=== PATIENT | female | born 1945 | race Caucasian/White ===

== ENCOUNTER 2016-08-11 20:42 | Inpatient (IN) | payer OTHER, MEDICAID ==
[~2016-08-11] VITALS: Ht 160 cm; Wt 83.9 kg
[2016-08-11 20:45] VITALS: BP 128/98; PULSE 100; RESP 24; TEMP 102.4; O2SAT 95
[2016-08-11 22:49] LABS: BASOPHILS % (AUTO) 0.4 % (0.0-2.0); HEMOGLOBIN 7.8 g/dL (12.0-16.0); LYMPHOCYTES # (AUTO) 0.4 K/uL (1.0-5.5); LYMPHOCYTES % (AUTO) 7.9 % (20.5-51.5); MEAN CORPUSCULAR HEMOGLOBIN 32 pg (27-31); MEAN CORPUSCULAR HGB CONC 33 % (32-36); MEAN CORPUSCULAR VOLUME 97 fL (79.0-98.0); MONOCYTES # (AUTO) 0.4 K/uL (0.0-1.0); MONOCYTES % (AUTO) 7.5 % (1.7-9.3); NEUTROPHILS # (AUTO) 4.5 K/uL (1.8-7.7); NEUTROPHILS % (AUTO) 84.2 % (40.0-70.0); PLATELET COUNT (AUTO) 135 K/uL (130-430); RED BLOOD CELL COUNT(AUTO) 2.48 MIL/uL (4.2-6.2); RED CELL DISTRIBUTION WIDTH 16.4 % (9.0-15.0); WHITE BLOOD COUNT (AUTO) 5.3 K/uL (4.8-10.8)
[2016-08-11 23:01] LABS: CALCIUM 8.3 mg/dL (8.4-11.0); CREATININE 3.42 mg/dL (0.55-1.30); POTASSIUM 3.6 mmol/L (3.5-5.1)
[2016-08-11 23:06] LABS: ALBUMIN 2.3 g/dL (3.4-4.8); TOTAL BILIRUBIN 0.4 mg/dL (0.0-1.0)
[2016-08-11] MEDS ORDERED: MEROPENEM 1 GM IVPB PREMIX 50 ML IV ONE (23:30)
[2016-08-11] MEDS ORDERED: VANCOMYCIN HCL 1,000 MG in NS 250 ML IV ONE (23:30)
[2016-08-11] MEDS ORDERED: VANCOMYCIN HCL 1000 MG/VIAL IV ONE (23:39)
[2016-08-12] VITALS (11 sets, daily range): BP systolic 97–148; BP diastolic 45–101; PULSE 71–100; RESP 16–29; TEMP 97.4–98.1; O2SAT 95–99
[2016-08-12] MEDS ORDERED: FOLI-43 PO ×2 (00:12→01:53)
[2016-08-12] MEDS ORDERED: TEMA15CA51 PO (00:12)
[2016-08-12] MEDS ORDERED: WARF4TAB2 PO (00:12)
[2016-08-12] MEDS ORDERED: LYR25 PO (00:12)
[2016-08-12] MEDS ORDERED: METH10TA80 PO (00:12)
[2016-08-12] MEDS ORDERED: MONT10TA25 PO (00:12)
[2016-08-12] MEDS ORDERED: MULT-1189 PO (01:53)
[2016-08-12] MEDS ORDERED: ZIN220 PO (01:53)
[2016-08-12] MEDS ORDERED: FAMO20TA98 PO (01:53)
[2016-08-12] MEDS ORDERED: METO-290 PO (01:53)
[2016-08-12] MEDS ORDERED: INSU100V11 SQ (01:53)
[2016-08-12] MEDS ORDERED: ATOR10TA68 PO (01:53)
[2016-08-12] MEDS ORDERED: HYDR-1189 PO (01:53)
[2016-08-12] MEDS ORDERED: MEGE40TA PO (01:53)
[2016-08-12] MEDS ORDERED: DIPH25CA83 PO (01:53)
[2016-08-12] MEDS ORDERED: ERGO500043 PO (01:53)
[2016-08-12] MEDS ORDERED: ONDA4TAB5 PO (01:53)
[2016-08-12] MEDS ORDERED: CARV12.548 PO (01:53)
[2016-08-12] MEDS ORDERED: CALC667T5 PO (01:53)
[2016-08-12] MEDS ORDERED: MINE25OI3 TP (01:53)
[2016-08-12] MEDS ORDERED: AMIN30LI2 PO (01:53)
[2016-08-12] MEDS ORDERED: DIPH25TA62 (01:53)
[2016-08-12] MEDS ORDERED: DIPH-590 (01:53)
[2016-08-12] MEDS ORDERED: ACET-1010 PO (01:53)
[2016-08-12] MEDS ORDERED: LORA1TAB PO (01:53)
[2016-08-12] MEDS ORDERED: FERR-57 PO (01:53)
[2016-08-12] MEDS ORDERED: ASCO500T20 PO (01:53)
[2016-08-12] MEDS ORDERED: ONDANSETRON 4 MG ODT TAB PO PRN (02:00)
[2016-08-12 02:26] LABS: INR 3.2 (0.8-1.2)
[2016-08-12 02:33] LABS: PROTHROMBIN TIME 35.9 SECS (9.5-12.5)
[2016-08-12 02:51] LABS: ABG TOTAL HEMOGLOBIN 8.9 G/dL (12.0-18.0); BLOOD GAS BASE EXCESS 5.8 mmol/L (-3.0-3.0); BLOOD GAS COHb% 0.5 % (0.5-1.5); BLOOD GAS HHB 3.2 % (0.0-6.0); BLOOD O2Hb% 95.7 % (94.0-97.0)
[2016-08-12] MEDS: ALBUTEROL SULFATE 0.083% 2.5 MG/3 ML VIAL.NEB INH SCH ×6 (03:27→23:57)
[2016-08-12 06:25] LABS: INR 3.4 (0.8-1.2)
[2016-08-12 06:33] LABS: PROTHROMBIN TIME 38.5 SECS (9.5-12.5)
[2016-08-12] MEDS: INSULIN REGULAR, HUMAN 100 UNITS/ML, 10 ML VIAL (novoLIN R) SUBCUT PRN ×3 (06:55→22:51)
[2016-08-12 06:56] LABS: BASOPHILS % (AUTO) 0.8 % (0.0-2.0); EOSINOPHILS % (AUTO) 0.2 % (0.0-4.0); HEMATOCRIT 25.3 % (36-48); HEMOGLOBIN 8.2 g/dL (12.0-16.0); LYMPHOCYTES # (AUTO) 0.5 K/uL (1.0-5.5); LYMPHOCYTES % (AUTO) 12.5 % (20.5-51.5); MEAN CORPUSCULAR HEMOGLOBIN 32 pg (27-31); MEAN CORPUSCULAR HGB CONC 32 % (32-36); MEAN CORPUSCULAR VOLUME 98 fL (79.0-98.0); MONOCYTES # (AUTO) 0.6 K/uL (0.0-1.0); MONOCYTES % (AUTO) 14.4 % (1.7-9.3); NEUTROPHILS # (AUTO) 3.1 K/uL (1.8-7.7); NEUTROPHILS % (AUTO) 72.1 % (40.0-70.0); PLATELET COUNT (AUTO) 118 K/uL (130-430); RED BLOOD CELL COUNT(AUTO) 2.59 MIL/uL (4.2-6.2); RED CELL DISTRIBUTION WIDTH 16.7 % (9.0-15.0); WHITE BLOOD COUNT (AUTO) 4.2 K/uL (4.8-10.8)
[2016-08-12 07:32] LABS: CREATININE 3.68 mg/dL (0.55-1.30); POTASSIUM 3.7 mmol/L (3.5-5.1)
[2016-08-12] MEDS: FAMOTIDINE 20 MG TABLET PO SCH (08:19)
[2016-08-12] MEDS: PREGABALIN 25 MG CAPSULE (LYRICA) PO SCH (08:19)
[2016-08-12] MEDS: FERROUS SULFATE 325 MG TABLET.DR PO SCH ×2 (08:19→21:54)
[2016-08-12] MEDS: ATORVASTATIN 10 MG TABLET PO SCH (08:19)
[2016-08-12] MEDS: MEGESTROL ACETATE 400 MG/10 ML UDC PO SCH ×3 (08:19→21:00)
[2016-08-12] MEDS: ASCORBIC ACID 500 MG TABLET PO SCH (08:20)
[2016-08-12] MEDS: METOCLOPRAMIDE HCL 10 MG TABLET PO SCH ×2 (08:20→21:54)
[2016-08-12] MEDS: CARVEDILOL 12.5 MG TABLET (COREG) PO SCH ×2 (08:21→21:55)
[2016-08-12] MEDS: FOLIC ACID 1 MG TABLET PO SCH (08:22)
[2016-08-12] MEDS: METHIMAZOLE 5 MG TABLET PO SCH ×3 (08:43→21:54)
[2016-08-12] MEDS: CALCIUM ACETATE 667 MG CAP PO SCH ×3 (08:44→17:05)
[2016-08-12] MEDS ORDERED: FOLIC ACID 1 MG TABLET PO SCH (09:00)
[2016-08-12] MEDS ORDERED: WARFARIN SODIUM 4 MG TABLET PO SCH (09:00)
[2016-08-12] MEDS ORDERED: NON-FORMULARY MEDICATION (Amino Acids/Protein Hydrolys (Pro-Stat Liquid) 30 ML) PO SCH (09:00)
[2016-08-12] MEDS: LACTULOSE 20 GM/30 ML UDC PO SCH ×2 (10:15→21:00)
[2016-08-12] MEDS ORDERED: LACTULOSE 20 GM/30 ML UDC PO ONE (11:45)
[2016-08-12] MEDS: MULTIVITS,CA,MINERALS/IRON/FA 1 TABLET PO SCH (11:54)
[2016-08-12] MEDS: MINERAL OIL 30 ML UDC PO SCH (11:54)
[2016-08-12] MEDS: CEFEPIME 1 GM in D5W 50 ML IV SCH (14:27)
[2016-08-12] MEDS: MONTELUKAST 10 MG TABLET PO SCH (17:05)
[2016-08-12] MEDS: HYDROcodone/ACETAMIN 5-325 MG TAB (NORCO/ VICODIN) PO PRN (19:58)
[2016-08-12] MEDS ORDERED: MINERAL OIL 30 ML UDC PO SCH (21:00)
[2016-08-12] MEDS ORDERED: METHIMAZOLE 5 MG TABLET ONE (21:56)
[2016-08-13 00:53] VITALS: BP 132/86; PULSE 72; RESP 18; TEMP 98.2; O2SAT 98
[2016-08-13] MEDS: HYDROcodone/ACETAMIN 5-325 MG TAB (NORCO/ VICODIN) PO PRN ×3 (02:13→17:56)
[2016-08-13 04:41] VITALS: BP 136/82; PULSE 76; RESP 17; TEMP 97.8; O2SAT 97
[2016-08-13 07:12] LABS: INR 3.4 (0.8-1.2)
[2016-08-13 07:28] LABS: BLOOD GAS PH 7.411 (7.350-7.450)
[2016-08-13 07:29] LABS: ABG TOTAL HEMOGLOBIN 8.9 G/dL (12.0-18.0); BLOOD GAS BASE EXCESS 3.2 mmol/L (-3.0-3.0); BLOOD GAS COHb% 0.8 % (0.5-1.5); BLOOD GAS HHB 4.9 % (0.0-6.0)
[2016-08-13 08:07] LABS: PROTHROMBIN TIME 38.6 SECS (9.5-12.5)
[2016-08-13] MEDS: ASCORBIC ACID 500 MG TABLET PO SCH (08:12)
[2016-08-13] MEDS: ATORVASTATIN 10 MG TABLET PO SCH (08:12)
[2016-08-13] MEDS: METOCLOPRAMIDE HCL 10 MG TABLET PO SCH ×2 (08:12→20:39)
[2016-08-13] MEDS: FAMOTIDINE 20 MG TABLET PO SCH (08:13)
[2016-08-13] MEDS: MULTIVITS,CA,MINERALS/IRON/FA 1 TABLET PO SCH (08:13)
[2016-08-13] MEDS: CALCIUM ACETATE 667 MG CAP PO SCH ×3 (08:13→17:56)
[2016-08-13] MEDS: PREGABALIN 25 MG CAPSULE (LYRICA) PO SCH (08:13)
[2016-08-13] MEDS: FERROUS SULFATE 325 MG TABLET.DR PO SCH ×2 (08:13→20:39)
[2016-08-13] MEDS: CARVEDILOL 12.5 MG TABLET (COREG) PO SCH ×2 (08:14→20:41)
[2016-08-13] MEDS: MINERAL OIL 30 ML UDC PO SCH (08:14)
[2016-08-13] MEDS: FOLIC ACID 1 MG TABLET PO SCH (08:14)
[2016-08-13] MEDS: LACTULOSE 20 GM/30 ML UDC PO SCH ×2 (08:14→20:39)
[2016-08-13] MEDS: MEGESTROL ACETATE 400 MG/10 ML UDC PO SCH ×2 (08:15→20:39)
[2016-08-13] MEDS ORDERED: HEPARIN SODIUM,PORCINE 5000 UNITS/ML VIAL IVP ONE ×2 (10:00)
[2016-08-13] MEDS: METHIMAZOLE 5 MG TABLET PO SCH ×3 (11:02→20:40)
[2016-08-13] MEDS: ALBUTEROL SULFATE 0.083% 2.5 MG/3 ML VIAL.NEB INH SCH ×3 (11:28→19:49)
[2016-08-13] MEDS: CEFEPIME 1 GM in D5W 50 ML IV SCH (12:08)
[2016-08-13 13:09] VITALS: BP 134/72; PULSE 83; RESP 20; TEMP 97.3; O2SAT 95
[2016-08-13 16:14] VITALS: Ht 160 cm; Wt 83.9 kg
[2016-08-13] MEDS ORDERED: ALBUTEROL SULFATE 0.083% 2.5 MG/3 ML VIAL.NEB INH PRN (16:15)
[2016-08-13 17:09] VITALS: BP 134/65; PULSE 78; RESP 20; TEMP 97.8; O2SAT 96
[2016-08-13] MEDS: INSULIN REGULAR, HUMAN 100 UNITS/ML, 10 ML VIAL (novoLIN R) SUBCUT PRN ×2 (17:52→20:37)
[2016-08-13] MEDS: MONTELUKAST 10 MG TABLET PO SCH (17:56)
[2016-08-13 20:00] VITALS: BP 119/60; PULSE 77; RESP 18; TEMP 97.3; O2SAT 97
[2016-08-13 23:37] VITALS: BP 121/64; PULSE 72; RESP 20; TEMP 97.2; O2SAT 98
[2016-08-14] MEDS: ALBUTEROL SULFATE 0.083% 2.5 MG/3 ML VIAL.NEB INH SCH ×4 (01:00→20:31)
[2016-08-14 04:05] VITALS: BP 132/65; PULSE 67; RESP 18; TEMP 97.2; O2SAT 97
[2016-08-14 06:29] LABS: CREATININE 4.38 mg/dL (0.55-1.30); POTASSIUM 3.8 mmol/L (3.5-5.1)
[2016-08-14 06:41] LABS: BASOPHILS % (AUTO) 0.4 % (0.0-2.0); EOSINOPHILS # (AUTO) 0.4 K/uL (0.0-0.4); EOSINOPHILS % (AUTO) 7.3 % (0.0-4.0); HEMATOCRIT 27.6 % (36-48); HEMOGLOBIN 8.8 g/dL (12.0-16.0); LYMPHOCYTES # (AUTO) 1.2 K/uL (1.0-5.5); MEAN CORPUSCULAR HEMOGLOBIN 31 pg (27-31); MEAN CORPUSCULAR HGB CONC 32 % (32-36); MEAN CORPUSCULAR VOLUME 97 fL (79.0-98.0); MONOCYTES # (AUTO) 0.5 K/uL (0.0-1.0); MONOCYTES % (AUTO) 9.7 % (1.7-9.3); NEUTROPHILS # (AUTO) 2.9 K/uL (1.8-7.7); NEUTROPHILS % (AUTO) 59.6 % (40.0-70.0); PLATELET COUNT (AUTO) 135 K/uL (130-430); RED BLOOD CELL COUNT(AUTO) 2.84 MIL/uL (4.2-6.2); RED CELL DISTRIBUTION WIDTH 16.6 % (9.0-15.0)
[2016-08-14 06:44] LABS: INR 2.1 (0.8-1.2); PROTHROMBIN TIME 23.1 SECS (9.5-12.5)
[2016-08-14 08:00] VITALS: BP 138/69; PULSE 73; RESP 16; TEMP 97.1; O2SAT 96
[2016-08-14 08:06] LABS: HEPATITIS A AB, IgM Negative (Negative); HEPATITIS B CORE AB, IgM Negative (Negative); HEPATITIS B SURFACE AG Negative (Negative)
[2016-08-14] MEDS: MEGESTROL ACETATE 400 MG/10 ML UDC PO SCH ×3 (08:35→21:00)
[2016-08-14] MEDS: FERROUS SULFATE 325 MG TABLET.DR PO SCH ×2 (08:35→21:21)
[2016-08-14] MEDS: PREGABALIN 25 MG CAPSULE (LYRICA) PO SCH (08:35)
[2016-08-14] MEDS: ATORVASTATIN 10 MG TABLET PO SCH (08:35)
[2016-08-14] MEDS: CALCIUM ACETATE 667 MG CAP PO SCH ×3 (08:35→17:09)
[2016-08-14] MEDS: METOCLOPRAMIDE HCL 10 MG TABLET PO SCH ×2 (08:35→21:19)
[2016-08-14] MEDS: HYDROcodone/ACETAMIN 5-325 MG TAB (NORCO/ VICODIN) PO PRN ×3 (08:36→21:21)
[2016-08-14] MEDS: MULTIVITS,CA,MINERALS/IRON/FA 1 TABLET PO SCH (08:37)
[2016-08-14] MEDS: FAMOTIDINE 20 MG TABLET PO SCH (08:37)
[2016-08-14] MEDS: FOLIC ACID 1 MG TABLET PO SCH (08:37)
[2016-08-14] MEDS: LACTULOSE 20 GM/30 ML UDC PO SCH (08:38)
[2016-08-14] MEDS: MINERAL OIL 30 ML UDC PO SCH (08:38)
[2016-08-14] MEDS ORDERED: NON-FORMULARY MEDICATION (Ergocalciferol (Vitamin D2) (Vitamin D2) 50,000 UNIT) PO SCH (09:00)
[2016-08-14] MEDS: ASCORBIC ACID 500 MG TABLET PO SCH (09:04)
[2016-08-14] MEDS: METHIMAZOLE 5 MG TABLET PO SCH ×3 (09:05→21:30)
[2016-08-14] MEDS ORDERED: methylPREDNISolone SOD SUCC/PF 62.5 MG/ML VIAL IVP ONE (10:00)
[2016-08-14] MEDS: CEFEPIME 1 GM in D5W 50 ML IV SCH (11:45)
[2016-08-14] MEDS: IPRATROPIUM BROM 0.5 MG/2.5 ML VIAL.NEB (ATROVENT) INH SCH ×2 (12:46→20:31)
[2016-08-14 12:55] VITALS: BP 130/70; PULSE 76; RESP 17; TEMP 98; O2SAT 98
[2016-08-14] MEDS: CARVEDILOL 12.5 MG TABLET (COREG) PO SCH ×2 (13:29→21:20)
[2016-08-14] MEDS ORDERED: MENTHOL/ZINC OXIDE 113 GM OINT. TP PRN (14:15)
[2016-08-14] MEDS: ALPRAZolam 0.25 MG TABLET PO PRN ×2 (14:50→21:20)
[2016-08-14 16:01] VITALS: BP 138/72; PULSE 80; RESP 18; TEMP 97.8; O2SAT 98
[2016-08-14] MEDS: INSULIN REGULAR, HUMAN 100 UNITS/ML, 10 ML VIAL (novoLIN R) SUBCUT PRN ×2 (16:48→21:29)
[2016-08-14] MEDS: MONTELUKAST 10 MG TABLET PO SCH (17:09)
[2016-08-14 20:00] VITALS: BP 148/87; PULSE 75; RESP 20; TEMP 97.8; O2SAT 94
[2016-08-15] VITALS (7 sets, daily range): BP systolic 122–138; BP diastolic 60–73; PULSE 68–91; RESP 16–21; TEMP 96.8–97.4; O2SAT 95–98
[2016-08-15] MEDS: ALBUTEROL SULFATE 0.083% 2.5 MG/3 ML VIAL.NEB INH SCH ×4 (01:00→19:30)
[2016-08-15] MEDS: IPRATROPIUM BROM 0.5 MG/2.5 ML VIAL.NEB (ATROVENT) INH SCH ×4 (01:00→19:30)
[2016-08-15] MEDS: INSULIN REGULAR, HUMAN 100 UNITS/ML, 10 ML VIAL (novoLIN R) SUBCUT PRN ×3 (06:39→21:18)
[2016-08-15 07:28] LABS: INR 1.6 (0.8-1.2); PROTHROMBIN TIME 17.3 SECS (9.5-12.5)
[2016-08-15] MEDS: CALCIUM ACETATE 667 MG CAP PO SCH ×3 (08:54→18:37)
[2016-08-15] MEDS: FOLIC ACID 1 MG TABLET PO SCH (08:55)
[2016-08-15] MEDS: FERROUS SULFATE 325 MG TABLET.DR PO SCH ×2 (08:55→21:07)
[2016-08-15] MEDS: PREGABALIN 25 MG CAPSULE (LYRICA) PO SCH (08:55)
[2016-08-15] MEDS: ATORVASTATIN 10 MG TABLET PO SCH (08:55)
[2016-08-15] MEDS: FAMOTIDINE 20 MG TABLET PO SCH (08:56)
[2016-08-15] MEDS: METOCLOPRAMIDE HCL 10 MG TABLET PO SCH ×2 (08:56→21:08)
[2016-08-15] MEDS: ASCORBIC ACID 500 MG TABLET PO SCH (08:57)
[2016-08-15] MEDS: MULTIVITS,CA,MINERALS/IRON/FA 1 TABLET PO SCH (08:57)
[2016-08-15] MEDS: METHIMAZOLE 5 MG TABLET PO SCH ×3 (08:57→21:09)
[2016-08-15] MEDS: ALPRAZolam 0.25 MG TABLET PO PRN ×3 (08:58→21:24)
[2016-08-15] MEDS: MEGESTROL ACETATE 400 MG/10 ML UDC PO SCH ×2 (08:59→21:08)
[2016-08-15] MEDS: HYDROcodone/ACETAMIN 5-325 MG TAB (NORCO/ VICODIN) PO PRN ×3 (08:59→21:26)
[2016-08-15] MEDS: MINERAL OIL 30 ML UDC PO SCH (09:00)
[2016-08-15] MEDS: CARVEDILOL 12.5 MG TABLET (COREG) PO SCH ×2 (09:00→21:07)
[2016-08-15] MEDS: CEFEPIME 1 GM in D5W 50 ML IV SCH (11:53)
[2016-08-15] MEDS ORDERED: WARFARIN SODIUM 3 MG TABLET PO ONE (18:00)
[2016-08-15] MEDS ORDERED: WARFARIN SODIUM 4 MG TABLET PO ONE (18:00)
[2016-08-15] MEDS: MONTELUKAST 10 MG TABLET PO SCH (18:37)
[2016-08-15] MEDS: DOXYCYCLINE HYCLATE 100 MG CAPSULE PO SCH (21:09)
[2016-08-16 00:34] VITALS: BP 123/65; PULSE 73; RESP 18; TEMP 98.5; O2SAT 97
[2016-08-16 03:39] VITALS: BP 125/63; PULSE 71; RESP 18; TEMP 98.6; O2SAT 97
[2016-08-16] MEDS: HYDROcodone/ACETAMIN 5-325 MG TAB (NORCO/ VICODIN) PO PRN (05:44)
[2016-08-16] MEDS: ALPRAZolam 0.25 MG TABLET PO PRN (05:45)
[2016-08-16 07:16] LABS: INR 1.6 (0.8-1.2); PROTHROMBIN TIME 17.2 SECS (9.5-12.5)
[2016-08-16 07:54] VITALS: BP 123/68; PULSE 68; RESP 20; TEMP 97.6; O2SAT 100
[2016-08-16] MEDS: METHIMAZOLE 5 MG TABLET PO SCH (08:21)
[2016-08-16] MEDS: ASCORBIC ACID 500 MG TABLET PO SCH (08:23)
[2016-08-16] MEDS: MEGESTROL ACETATE 400 MG/10 ML UDC PO SCH (08:23)
[2016-08-16] MEDS: FAMOTIDINE 20 MG TABLET PO SCH (08:23)
[2016-08-16] MEDS: PREGABALIN 25 MG CAPSULE (LYRICA) PO SCH (08:23)
[2016-08-16] MEDS: FERROUS SULFATE 325 MG TABLET.DR PO SCH (08:23)
[2016-08-16] MEDS: CALCIUM ACETATE 667 MG CAP PO SCH (08:23)
[2016-08-16] MEDS: MULTIVITS,CA,MINERALS/IRON/FA 1 TABLET PO SCH (08:23)
[2016-08-16] MEDS: FOLIC ACID 1 MG TABLET PO SCH (08:23)
[2016-08-16] MEDS: ATORVASTATIN 10 MG TABLET PO SCH (08:23)
[2016-08-16] MEDS: METOCLOPRAMIDE HCL 10 MG TABLET PO SCH (08:23)
[2016-08-16] MEDS: CARVEDILOL 12.5 MG TABLET (COREG) PO SCH (08:24)
[2016-08-16] MEDS: DOXYCYCLINE HYCLATE 100 MG CAPSULE PO SCH (08:24)
[2016-08-16] MEDS: MINERAL OIL 30 ML UDC PO SCH (08:24)
[2016-08-16] MEDS: IPRATROPIUM BROM 0.5 MG/2.5 ML VIAL.NEB (ATROVENT) INH SCH ×2 (08:37)
[2016-08-16] MEDS: ALBUTEROL SULFATE 0.083% 2.5 MG/3 ML VIAL.NEB INH SCH ×2 (08:37)
[2016-08-16 10:08] VITALS: BP 106/65; PULSE 72; RESP 18; TEMP 97.6; O2SAT 98
[2016-08-16 11:00] VITALS: BP 100/65; PULSE 72; RESP 18; TEMP 98.7; O2SAT 99
[2016-08-16] MEDS ORDERED: WARFARIN SODIUM 3 MG TABLET PO SCH (18:00)
== END 2016-08-16 11:15 | DRG 177 ==
LOC: SED 20:42 → SIC 08-12 01:27 → STU 08-12 10:56 → SMU 08-14 15:18
PROVIDERS: ADMIT Internal Medicine; ATTEND Internal Medicine
PROC: 5A1D60Z (ICD-10-PCS; principal; 2016-08-13)
DX: J69.0 Pneumonitis due to inhalation of food and vomit (principal); E43 Unspecified severe protein-calorie malnutrition; N18.6 End stage renal disease; G93.41 Metabolic encephalopathy; N25.81 Secondary hyperparathyroidism of renal origin; I13.2 Hypertensive heart and chronic kidney disease with heart failure and with stage 5 chronic kidney disease, or end stage renal disease; I50.9 Heart failure, unspecified; D63.1 Anemia in chronic kidney disease; E05.90 Thyrotoxicosis, unspecified without thyrotoxic crisis or storm; E11.22 Type 2 diabetes mellitus with diabetic chronic kidney disease; E66.01 Morbid (severe) obesity due to excess calories; G47.33 Obstructive sleep apnea (adult) (pediatric); E03.9 Hypothyroidism, unspecified; I87.2 Venous insufficiency (chronic) (peripheral); K76.9 Liver disease, unspecified; J44.9 Chronic obstructive pulmonary disease, unspecified; I89.0 Lymphedema, not elsewhere classified; G89.4 Chronic pain syndrome; Z79.01 Long term (current) use of anticoagulants; Z86.711 Personal history of pulmonary embolism; Z99.2 Dependence on renal dialysis; Z79.4 Long term (current) use of insulin; Z88.6 Allergy status to analgesic agent; Z88.7 Allergy status to serum and vaccine; Z22.322 Carrier or suspected carrier of Methicillin resistant Staphylococcus aureus; Z68.32 Body mass index [BMI] 32.0-32.9, adult; Z79.899 Other long term (current) drug therapy
CPT/HCPCS: 36415; 36600; 70450-TC; 71010; 80048; 80053; 80074; 82140-TC; 82803-TC; 82962; 83605; 84484; 85025; 85610-TC; 87040-TC; 87070-TC; 87081; 87205-TC; 90935; 90937; 93005; 94640; 94760; 96365; 96367; 96368; 97530-GP; 99291; J0692; J1644; J1815; J2185; J2930; J3370; J7030; J7050; J7060; J8597; Q0162

== ENCOUNTER 2020-11-22 14:21 | Inpatient (IN) | payer OTHER, MEDICAID, SELFPAY ==
[~2020-11-22] VITALS: Ht 154.9 cm; Wt 93.6 kg
[~2020-11-22 14:21] MED LIST: ACET-2634 PO; AMIN30LI2 PO; ASCO500T20 PO; ATOR10TA68 PO; CALC667T6 PO; CARV12.548 PO; DIPH-590; DIPH25CA83 PO; DIPH25TA62; ERGO500020 PO; FAMO-132 PO; FERR-57 PO; FOLI-43 PO; HYDR-3919 PO; INSU100V11 SQ; LORA1TAB PO; LYR25 PO; MEGE40TA PO; METH10TA80 PO; METO-290 PO; MINE25OI3 TP; MONT10TA33 PO; MULT-1189 PO; ONDA4TAB5 PO; TEMA15CA5 PO; WARF4TAB2 PO; ZIN220 PO
[2020-11-22 14:30] VITALS: BP_SYST 108
--- NOTE | 2020-11-22 14:30 | NUR ---
Patient to ER bed 8 to gown for evaluation. Side rails up. Report given to BINDU WU.
--- NOTE | 2020-11-22 14:50 | NUR ---
Pt. bib ACLS with c/o SOB during dialysis was on 15L/min with non rebreather and O2 sat 100% pt denies any SOB at this time.
--- NOTE | 2020-11-22 15:00 | NUR ---
ER at bedside examining patient.
--- NOTE | 2020-11-22 15:35 | NUR ---
Lowered O2 to 5L/min sat high 90s to 100%, no SOB, O2 removed for ABG pt decreased to mid 80's on RA, o2 reapplied at 5L/min. and sat 100%.
--- NOTE | 2020-11-22 15:40 | NUR ---
Lab at bedside for blood draw
--- NOTE | 2020-11-22 15:48 | NUR ---
chest xray done at bedside, covid swab taken, pt. placed on NC 3L/min O2
[2020-11-22 16:04] LABS: HEMOGLOBIN 9.5 g/dL (12.0-16.0); PLATELET COUNT (AUTO) 89 K/uL (130-430); RED BLOOD CELL COUNT(AUTO) 2.84 MIL/uL (4.2-6.2)
[2020-11-22 16:18] LABS: CALCIUM 8.8 mg/dL (8.4-11.0); CHLORIDE 99 mmol/L (98-107); CREATININE 1.88 mg/dL (0.55-1.30); GLUCOSE 151 mg/dL (70-99); POTASSIUM 3.8 mmol/L (3.5-5.1); SODIUM SERUM 138 mmol/L (136-145); UREA NITROGEN, BLOOD 17 mg/dL (8-21)
[2020-11-22 16:23] LABS: BASOPHILS % (AUTO) 0.8 % (0.0-2.0); EOSINOPHILS # (AUTO) 0.3 K/uL (0.0-0.4); EOSINOPHILS % (AUTO) 5.2 % (0.0-4.0); HEMATOCRIT 29.1 % (36-48); LYMPHOCYTES # (AUTO) 0.5 K/uL (1.0-5.5); LYMPHOCYTES % (AUTO) 8.4 % (20.5-51.5); MEAN CORPUSCULAR HEMOGLOBIN 33 pg (27-31); MEAN CORPUSCULAR HGB CONC 32 % (32-36); MEAN CORPUSCULAR VOLUME 103 fL (79.0-98.0); MONOCYTES # (AUTO) 0.5 K/uL (0.0-1.0); MONOCYTES % (AUTO) 7.5 % (1.7-9.3); NEUTROPHILS # (AUTO) 4.8 K/uL (1.8-7.7); NEUTROPHILS % (AUTO) 78.1 % (40.0-70.0); RED CELL DISTRIBUTION WIDTH 14.8 % (9.0-15.0); WHITE BLOOD COUNT (AUTO) 6.1 K/uL (4.8-10.8)
[2020-11-22 16:24] LABS: ALANINE AMINOTRANSFERASE 15 U/L (12-78); ALBUMIN 3.3 g/dL (3.4-4.8); ANION GAP < 3 (5-15); ASPARTATE AMINOTRANSFERASE 12 U/L (10-37); TOTAL BILIRUBIN 0.4 mg/dL (0.0-1.0)
[2020-11-22 16:38] LABS: INR 1.1 (0.8-1.2); PROTHROMBIN TIME 11.1 SECS (9.5-12.5)
[2020-11-22] MEDS ORDERED: AZITHROMYCIN 500 MG in NS 250 ML IV ONE (17:15)
[2020-11-22] MEDS ORDERED: cefTRIAXone 1 GM IVPB PREMIX 50 ML IV ONE (17:15)
[2020-11-22] MEDS ORDERED: AZITHROMYCIN 500 MG/VIAL (ZITHROMAX) IV ONE (18:09)
[2020-11-22] MEDS ORDERED: ONDANSETRON 4 MG ODT TAB PO PRN (19:15)
[2020-11-22] MEDS ORDERED: DIPHENHYDRAMINE HCL 25 MG CAPSULE PO PRN (19:15)
[2020-11-22] MEDS ORDERED: ACETAMINOPHEN 500 MG TABLET PO PRN (19:15)
[2020-11-22] MEDS ORDERED: ONDANSETRON HCL 4 MG/2 ML VIAL IVP PRN (19:15)
[2020-11-22] MEDS ORDERED: NALOXONE HCL 0.4 MG/ML AMP (NARCAN) IVP PRN (19:15)
--- NOTE | 2020-11-22 19:25 | NUR ---
assumed care of pt from toan sagastume
[2020-11-22] MEDS ORDERED: NS 250 ML IV ONE (19:30)
[2020-11-22] MEDS ORDERED: NACL 0.9% 1,000 ML IV SCH (20:00)
[2020-11-22] MEDS: FERROUS SULFATE 325 MG TABLET.DR PO SCH (21:00)
[2020-11-22] MEDS: METOCLOPRAMIDE HCL 10 MG TABLET PO SCH (21:00)
[2020-11-22] MEDS: CARVEDILOL 12.5 MG TABLET (COREG) PO SCH (21:00)
[2020-11-22] MEDS: LORazepam 2 MG/ML VIAL IVP PRN (21:11)
--- NOTE | 2020-11-22 21:15 | NUR ---
pt pulled iv tubing and caused her to bleed on the floor. very disoriebnted and acting inapproproatly. pt given 1mg ativan for comfort.
--- NOTE | 2020-11-22 22:12 | NUR ---
pt is calm, relaxed and asleep. pt is unable to take meds.
[2020-11-22] MEDS: NORMAL SALINE 5 ML DISP.SYRIN IVF SCH (22:23)
--- NOTE | 2020-11-23 | NUR ---
PATIENT IS RESTING IN BED LESS AGITATED WILL CONTINUE TO DO HOURLY ROUNDING. BED LOW AND CALL LIGHT IN REACH.
--- NOTE | 2020-11-23 | NUR ---
PATIENT IS RESTING IN BED AWAKE LESS AGITATED. BED LOW AND CALL LIGHT IN REACH. WILL CONTINUE HOURLY ROUNDING.
--- NOTE | 2020-11-23 00:30 | NUR ---
PT IS AWAKE AND MORE COOPERATIVE AT THIS TIME. HAS NO COMPLAINTS.
--- NOTE | 2020-11-23 03:59 | NUR ---
PT IS RESTING IN BED AND TRYING TO SLEEP. NO COMPLAINTS AT THIS TIME
--- NOTE | 2020-11-23 05:10 | NUR ---
Transfer to 112a via ACLS protocol. Licensed nurse present. IV present no signs or symptoms of infiltration.
[2020-11-23 05:20] VITALS: BP_SYST 126
--- NOTE | 2020-11-23 05:20 | NUR ---
ADMIT NOTE PATIENT TRANSFERRED FROM ER TO TELE FOR OBSERVATION. PATIENT IS CONFUSED UNABLE TO ASSESS ORIENTATION. IV LINE PATENT AND INTACT. BED IS LOW AND CALL LIGHT INTACT. PATIENT DIAPER CHANGED LINEN CHANGED.
[2020-11-23] MEDS: NORMAL SALINE 5 ML DISP.SYRIN IVF SCH ×3 (06:00→22:10)
[2020-11-23] MEDS ORDERED: GLUCOSE (DEXTROSE) ORAL GEL -Adults PO PRN (07:00)
[2020-11-23] MEDS ORDERED: DEXTROSE 50%-WATER 50 ML DISP.SYRIN IVP PRN (07:00)
[2020-11-23] MEDS ORDERED: D5W 1,000 ML IV PRN (07:00)
--- NOTE | 2020-11-23 07:00 | NUR ---
RN OPENING NOTE REPORT WAS ENDORSED BY NIGHT NURSE. PATIENT IS VERY LETHARGIC PATIENT OPENS HER EYES TO NAME, BUT WILL FALL RIGHT BACK TO SLEEP. PATIENT HAS ALL SAFETY PRECAUTIONS IN PLACE.PATIENT IS CLOSE TO NURSES STATION. NO OTHER NEEDS AT THIS TIME.
[2020-11-23 07:36] LABS: BASOPHILS % (AUTO) 0.9 % (0.0-2.0); EOSINOPHILS # (AUTO) 0.3 K/uL (0.0-0.4); EOSINOPHILS % (AUTO) 6.6 % (0.0-4.0); HEMATOCRIT 29.4 % (36-48); HEMOGLOBIN 9.5 g/dL (12.0-16.0); LYMPHOCYTES # (AUTO) 0.6 K/uL (1.0-5.5); LYMPHOCYTES % (AUTO) 12.3 % (20.5-51.5); MEAN CORPUSCULAR HEMOGLOBIN 33 pg (27-31); MEAN CORPUSCULAR HGB CONC 32 % (32-36); MEAN CORPUSCULAR VOLUME 102 fL (79.0-98.0); MONOCYTES # (AUTO) 0.5 K/uL (0.0-1.0); MONOCYTES % (AUTO) 9.9 % (1.7-9.3); NEUTROPHILS # (AUTO) 3.3 K/uL (1.8-7.7); NEUTROPHILS % (AUTO) 70.3 % (40.0-70.0); PLATELET COUNT (AUTO) 83 K/uL (130-430); RED BLOOD CELL COUNT(AUTO) 2.88 MIL/uL (4.2-6.2); RED CELL DISTRIBUTION WIDTH 14.7 % (9.0-15.0); WHITE BLOOD COUNT (AUTO) 4.8 K/uL (4.8-10.8)
[2020-11-23 08:00] VITALS: BP_SYST 148
[2020-11-23 08:00] LABS: ANION GAP 4 (5-15); CALCIUM 8.5 mg/dL (8.4-11.0); CHLORIDE 102 mmol/L (98-107); CREATININE 2.56 mg/dL (0.55-1.30); GLUCOSE 108 mg/dL (70-99); PHOSPHORUS 2.5 mg/dL (2.7-4.5); POTASSIUM 3.8 mmol/L (3.5-5.1); SODIUM SERUM 139 mmol/L (136-145); UREA NITROGEN, BLOOD 28 mg/dL (8-21)
[2020-11-23] MEDS: ASCORBIC ACID 500 MG TABLET PO SCH (08:40)
[2020-11-23] MEDS: FERROUS SULFATE 325 MG TABLET.DR PO SCH ×2 (08:40→21:41)
[2020-11-23] MEDS: PREGABALIN 25 MG CAPSULE (LYRICA) PO SCH (08:41)
[2020-11-23] MEDS: MULTIVITS,CA,MINERALS/IRON/FA 1 TABLET PO SCH (08:41)
[2020-11-23] MEDS: METOCLOPRAMIDE HCL 10 MG TABLET PO SCH ×2 (08:41→21:41)
[2020-11-23] MEDS: ATORVASTATIN 10 MG TABLET PO SCH (08:42)
[2020-11-23] MEDS: CARVEDILOL 12.5 MG TABLET (COREG) PO SCH ×2 (08:42→21:44)
--- NOTE | 2020-11-23 08:51 | NUR ---
MEDICATION PATIENTS SCHEDULED MEDICATION GIVEN PER ORDER. PATIENT IS AWAKE BUT STILL DROWSY. PATIENT STATES WANT TO TRY AND EAT BREAKFAST PROVIDED HER WITH TRAY , OPEN AND CUT UP FOOD FOR HER. PATIENT IS ABLE TO FEED HERSELF AND DRINK HER COFFEE. PATIENT TOLERATED MEDICATION WELL. PATIENT EDUCATED STEEL PLACER LIGHT FOR ASSISTANCE. CALL LIGHT IS WITH HER. PATIENT HAS ALL SAFETY PRECAUTIONS IN PLACE. NO OTHER NEEDS AT THIS TIME.
[2020-11-23] MEDS ORDERED: NON-FORMULARY MEDICATION (Amino Acids/Protein Hydrolys (Pro-Stat Liquid) 30 ML) PO SCH (09:00)
--- NOTE | 2020-11-23 10:48 | NUR ---
RN ROUNDING PATIENT APPEARS TO BE RESTING WITH BOTH EYES CLOSED NO SIGNS OF ANY DISTRESS, BREATHING IS EQUAL AND NON LABORED. PATIENT IS ON TELEMONITOR. PATIENT HAS ALL SAFETY PRECAUTIONS IN PLACE. PATIENT IS CLOSE TO NURSES STATION.
--- NOTE | 2020-11-23 11:51 | NUR ---
ACCU CHECK PATIENTS ACCU CHECK, NO COVERAGE WAS NEEDED. PATIENT IS STILL VERY LETHARGIC BUT OPENS EYES TO NAME. PATIENT SHOWS NO SIGNS OF ANY DISTRESS, BREATHING IS EQUAL AND NON LABORED. NO OTHER NEEDS AT THIS TIME.
[2020-11-23 12:43] VITALS: BP_SYST 138
[2020-11-23] MEDS: HYDROcodone/ACETAMIN 5-325 MG TAB (NORCO/ VICODIN) PO PRN (14:57)
[2020-11-23] MEDS ORDERED: AZITHROMYCIN 500 MG in NS 250 ML IV SCH (15:00)
[2020-11-23] MEDS ORDERED: cefTRIAXone 1 GM in D5W 50 ML IV SCH (15:00)
--- NOTE | 2020-11-23 15:08 | NUR ---
PAIN MEDICATION/ SCHEDULED MEDICATION/ DIALYSIS PATIENT IS AWAKE AND ALERT SITTING UP IN BED STARTING DIALYSIS, PATIENT COMPLAINS OF PAIN MEDICATED PER ORDER. PATIENTS SCHEDULED MEDICATION ALSO GIVEN PER ORDER. NO OTHER NEEDS AT THIS TIME. ALL SAFETY PRECAUTIONS IN PLACE. EDUCATED CORRECTIONS SERGEANT LIGHT, CALL LIGHT IS WITH HER. Addendum: 11/23/20 at 1529 by Angela Moralez RN unable to give iv antibiotics due to hemodialysis
--- NOTE | 2020-11-23 15:49 | NUR ---
spoke with Dr. brice to confirm orders on home medications. Addendum: 11/23/20 at 1555 by Angela Moralez RN HIGH ALERT NOTE: Called back identified within the medical roster to verify physician authenticity. order for heparin for hemodialysis
[2020-11-23] MEDS ORDERED: HEPARIN SODIUM,PORCINE 5,000 UNITS/ML VIAL SUBCUT PRN (16:00)
[2020-11-23 16:27] VITALS: BP_SYST 126
[2020-11-23] MEDS: INSULIN REGULAR, HUMAN 100 UNITS/ML, 10 ML VIAL (humuLIN R) SUBCUT PRN (17:50)
[2020-11-23] MEDS ORDERED: WARFARIN SODIUM 3 MG TABLET PO SCH (18:00)
--- NOTE | 2020-11-23 18:08 | NUR ---
CLOSING NOTE PATIENT IS DONE WITH HEMODIALYSIS 3 L OUT. PATIENTS SCHEDULED. MEDICATION GIVEN PER ORDER. PATIENT HAS ALL SAFETY PRECAUTIONS IN PLACE. Addendum: 11/23/20 at 1822 by Angela Moralez RN HIGH ALERT NOTE: Called Dr. yuniel orellana identified within the medical roster to verify physician authenticity. ok to give a one time dose for pain. patient is currently eating dinner. call light is with her educated to use for assistance. patient is close to nurses station. Addendum: 11/23/20 at 1917 by Angela Moralez RN PAIN MEDICATION GIVEN, SCHEDULED MEDICATION GIVEN PER ORDER.
[2020-11-23] MEDS ORDERED: IPRATROPIUM/ALBUTEROL SULFATE 3 ML AMPUL.NEB (DUONEB) INH PRN (18:15)
[2020-11-23] MEDS ORDERED: HYDROcodone/ACETAMIN 5-325 MG TAB (NORCO/ VICODIN) PO ONE (18:30)
[2020-11-23] MEDS ORDERED: FAMOTIDINE 20 MG TABLET PO ONE (19:15)
--- NOTE | 2020-11-23 19:30 | NUR ---
OPENING NOTE PATIENT IS AWAKE ORIENTED X1 TO NAME. PATIENTS IV IN RH IS PATENT AND PORT-A CATH IN LEST UPPER CHEST IS PATENT INTACT. BREATHING OXYGEN VIA N/C AT 3 LPM NO SIGNS OF RESPIRATORY DISTRESS OF PAIN. BED IS LOW AND CALL LIGHT IN REACH.
[2020-11-23] MEDS: LORazepam 2 MG/ML VIAL IVP PRN (20:43)
--- NOTE | 2020-11-23 20:43 | NUR ---
PATIENT IS VERY AGITATED/ HAS ANXIETY WILL ADMINISTER PRN DOSE OF ATIVAN ORDERED. WILL CONTINUE TO MONITOR ANGELIA LOW AND CALL LIGHT IN REACH.
[2020-11-23] MEDS: INSULIN GLARGINE 100 UNITS/ML 10 ML VIAL SUBCUT SCH (22:01)
[2020-11-23] MEDS: cefTRIAXone 1 GM in D5W 50 ML IV SCH (22:09)
[2020-11-23] MEDS: AZITHROMYCIN 500 MG in NS 250 ML IV SCH (22:10)
--- NOTE | 2020-11-24 | NUR ---
PATIENT IS LESS AGITATED WILL CONTINUE TO MONITOR. BED LOW AND CALL LIGHT IN REACH.
[2020-11-24 00:20] VITALS: BP_SYST 126
[2020-11-24 03:11] VITALS: BP_SYST 98
--- NOTE | 2020-11-24 04:00 | NUR ---
PATIENT IS AWAKE CONFUSED AND COOPERATIVE AT THIS TIME. BED IS LOW AND CALL LIGHT IN REACH.
[2020-11-24] MEDS: NORMAL SALINE 5 ML DISP.SYRIN IVF SCH ×3 (05:59→22:18)
[2020-11-24 06:57] LABS: BASOPHILS # (AUTO) 0.1 K/uL (0.0-0.2); BASOPHILS % (AUTO) 1.2 % (0.0-2.0); EOSINOPHILS # (AUTO) 0.3 K/uL (0.0-0.4); EOSINOPHILS % (AUTO) 5.9 % (0.0-4.0); HEMATOCRIT 30.1 % (36-48); HEMOGLOBIN 9.8 g/dL (12.0-16.0); LYMPHOCYTES # (AUTO) 0.6 K/uL (1.0-5.5); LYMPHOCYTES % (AUTO) 10.9 % (20.5-51.5); MEAN CORPUSCULAR HEMOGLOBIN 33 pg (27-31); MEAN CORPUSCULAR HGB CONC 33 % (32-36); MEAN CORPUSCULAR VOLUME 101 fL (79.0-98.0); MONOCYTES # (AUTO) 0.4 K/uL (0.0-1.0); MONOCYTES % (AUTO) 6.7 % (1.7-9.3); NEUTROPHILS % (AUTO) 75.3 % (40.0-70.0); PLATELET COUNT (AUTO) 86 K/uL (130-430); RED BLOOD CELL COUNT(AUTO) 2.97 MIL/uL (4.2-6.2); RED CELL DISTRIBUTION WIDTH 14.8 % (9.0-15.0); WHITE BLOOD COUNT (AUTO) 5.3 K/uL (4.8-10.8)
--- NOTE | 2020-11-24 07:03 | NUR ---
CLOSING NOTE PATIENT IS AWAKE ALERT X1 TO NAME. IV ACCESS PATENT INTACT IN RH AND PORT-A-CATH IN ANAIS PATENT INTACT. PATIENT INCONTINENT BEDBOUND. BED IS IN LOW POSITION AND CALL LIGHT IN REACH. WILL ENDORSE TO NEXT NURSE US OF LEG WAS COMPLETED LAST NIGHT IN MY SHIFT PENDING RESULT. PATIENT IS ANURIC GETS HD ///[facility] DIALYS[facility] ON 11/23/20 3 L OUTPUT.
--- NOTE | 2020-11-24 07:30 | NUR ---
AM ROUNDS: AWAKE DURING ROUNDS. ALERT AND ORIENTED X2-3/ IV SALINE LOCKED AT RIGHT ARM INTACT. LEFT UPPER CHEST MIRANDA CATHETER,DRESSING CLEAN AND DRY. CALL LIGHT WITH IN REACH. BED LOCKED IN LOWEST POSITION. CONTINUE TO MONITOR.
[2020-11-24 07:33] LABS: INR 1.1 (0.8-1.2); PROTHROMBIN TIME 11.4 SECS (9.5-12.5)
[2020-11-24 07:40] LABS: ANION GAP 7 (5-15); C-REACTIVE PROTEIN QUANT 1.3 mg/dL (0-0.5); CALCIUM 8.6 mg/dL (8.4-11.0); CHLORIDE 101 mmol/L (98-107); CREATININE 2.22 mg/dL (0.55-1.30); GLUCOSE 104 mg/dL (70-99); PHOSPHORUS 2.6 mg/dL (2.7-4.5); SODIUM SERUM 136 mmol/L (136-145); UREA NITROGEN, BLOOD 22 mg/dL (8-21)
[2020-11-24] MEDS: CARVEDILOL 12.5 MG TABLET (COREG) PO SCH ×2 (09:00→22:17)
[2020-11-24 09:53] VITALS: BP_SYST 143
[2020-11-24] MEDS: ATORVASTATIN 10 MG TABLET PO SCH (09:54)
[2020-11-24] MEDS: PREGABALIN 25 MG CAPSULE (LYRICA) PO SCH (09:55)
[2020-11-24] MEDS: FERROUS SULFATE 325 MG TABLET.DR PO SCH ×2 (09:55→22:16)
[2020-11-24] MEDS: ASCORBIC ACID 500 MG TABLET PO SCH (09:55)
[2020-11-24] MEDS: FAMOTIDINE 20 MG TABLET PO SCH (09:55)
[2020-11-24] MEDS: METOCLOPRAMIDE HCL 10 MG TABLET PO SCH ×2 (09:56→22:17)
--- NOTE | 2020-11-24 09:59 | NUR ---
Nutrition Update Shan Scale 13 noted. Pt admitted for pneumonia. Diet: cardiac, CCHO standard carb-60 gm BMI: 37.6 kg/m2 RD to follow per nutrition care standards.
[2020-11-24] MEDS: MULTIVITS,CA,MINERALS/IRON/FA 1 TABLET PO SCH (10:35)
[2020-11-24] MEDS: CHOLECALCIFEROL (VITAMIN D3) 5,000 UNIT TABLET PO SCH (10:35)
[2020-11-24 10:51] LABS: ERYTHROCYTE SEDIMENTATION RATE 28 MM/HR (0-20)
--- NOTE | 2020-11-24 12:03 | NUR ---
ORTHO ROUNDS: PATIENT SEEN BY DR DUMONT WITH ORDERS PORTABLE A/PELVIS X-RAY STAT FOR HIP PAIN.
--- NOTE | 2020-11-24 12:23 | NUR ---
CONSULTATION PAGED/CALLED Reason for Consultation: [] PNA Person Who was Notified: [] DALE; ALSO ASKED EXCHANGE TO INFORM DR PARADA THAT PT IS MRSA POSITIVE OF THE NARES Consulting Physician: [] DR YOSELIN PARADA Manufactured Buildings Repairer Specialty: [] ID Ordering Physician: [] DR Bhavna HERNANDEZ
[2020-11-24 12:28] VITALS: BP_SYST 141
--- NOTE | 2020-11-24 13:00 | NUR ---
HEMODIALYSIS: HEMODIALYSIS STARTED BY [facility],PATIENT IN STABLE CONDITION.
[2020-11-24] MEDS: HYDROcodone/ACETAMIN 5-325 MG TAB (NORCO/ VICODIN) PO PRN ×2 (13:53→23:38)
[2020-11-24] MEDS ORDERED: HEPARIN SODIUM,PORCINE 5,000 UNITS/ML VIAL MC ONE (14:00)
--- NOTE | 2020-11-24 16:00 | NUR ---
HD DONE: HD OUT=2 LITERS. STABLE.
[2020-11-24 16:45] VITALS: BP_SYST 130
[2020-11-24] MEDS: WARFARIN SODIUM 4 MG TABLET PO SCH (17:04)
--- NOTE | 2020-11-24 17:25 | NUR ---
SISTER CALLED: UPDATES GIVEN .WILL TELL CASE MGT THAT SISTER CALLED BACK REGARDING LEAVING MESSAGES VIA HER PHONE.
[2020-11-24] MEDS ORDERED: NA PHOS 15 MM in NS 250 ML IV ONE (18:00)
--- NOTE | 2020-11-24 18:42 | NUR ---
Closing notes: Patient pulled out her iv access.Patient eating dinner. Will try to re insert another iv access. Will endorsed to incoming night nurse ,patient stable.
--- NOTE | 2020-11-24 19:15 | NUR ---
REFUSE AM ABG 11/24 Per dayshift nurse report at approximately 0800 according to the RT, ABG draw refused.
[2020-11-24 20:00] VITALS: BP_SYST 138
--- NOTE | 2020-11-24 22:00 | NUR ---
ROUNDING NOTES Patient resting in bed - no s/s pain or distress noted. Respirations even and unlabored - head of bed elevated. IV site patent - no s/s redness, infection, or infiltration. Bed locked and in lowest position. Call light within reach - bed alarm on.
[2020-11-24] MEDS: cefTRIAXone 1 GM in D5W 50 ML IV SCH (22:15)
[2020-11-24] MEDS: MUPIROCIN 2% TOPICAL OINTMENT 22 GM NS SCH (22:15)
[2020-11-24] MEDS: AZITHROMYCIN 500 MG in NS 250 ML IV SCH (22:16)
[2020-11-24] MEDS: INSULIN REGULAR, HUMAN 100 UNITS/ML, 10 ML VIAL (humuLIN R) SUBCUT PRN (22:26)
[2020-11-24] MEDS: INSULIN GLARGINE 100 UNITS/ML 10 ML VIAL SUBCUT SCH (22:32)
[2020-11-25] MEDS: TEMAZEPAM 15 MG CAPSULE PO PRN (00:08)
[2020-11-25 02:08] VITALS: BP_SYST 121
[2020-11-25] MEDS: NORMAL SALINE 5 ML DISP.SYRIN IVF SCH ×3 (06:08→21:04)
--- NOTE | 2020-11-25 06:35 | NUR ---
PATIENT BLOOD SUGAR 78 ADMINISTERED GLUCOSE-15 at 0607, CHECKED APROX AFTER 15 MINUTES BLOOD SUGAR WNL
[2020-11-25 07:00] VITALS: BP_SYST 128
[2020-11-25 07:11] LABS: BASOPHILS # (AUTO) 0.1 K/uL (0.0-0.2); BASOPHILS % (AUTO) 1.9 % (0.0-2.0); EOSINOPHILS # (AUTO) 0.3 K/uL (0.0-0.4); EOSINOPHILS % (AUTO) 5.5 % (0.0-4.0); HEMATOCRIT 30.2 % (36-48); LYMPHOCYTES # (AUTO) 0.7 K/uL (1.0-5.5); LYMPHOCYTES % (AUTO) 14.3 % (20.5-51.5); MEAN CORPUSCULAR HEMOGLOBIN 33 pg (27-31); MEAN CORPUSCULAR HGB CONC 33 % (32-36); MEAN CORPUSCULAR VOLUME 101 fL (79.0-98.0); MONOCYTES # (AUTO) 0.5 K/uL (0.0-1.0); MONOCYTES % (AUTO) 10.3 % (1.7-9.3); NEUTROPHILS # (AUTO) 3.3 K/uL (1.8-7.7); PLATELET COUNT (AUTO) 95 K/uL (130-430); RED BLOOD CELL COUNT(AUTO) 3.01 MIL/uL (4.2-6.2); RED CELL DISTRIBUTION WIDTH 14.4 % (9.0-15.0); WHITE BLOOD COUNT (AUTO) 4.8 K/uL (4.8-10.8)
[2020-11-25 07:39] LABS: ALANINE AMINOTRANSFERASE 9 U/L (12-78); ALBUMIN 2.9 g/dL (3.4-4.8); ANION GAP 5 (5-15); ASPARTATE AMINOTRANSFERASE 15 U/L (10-37); C-REACTIVE PROTEIN QUANT 0.6 mg/dL (0-0.5); CALCIUM 8.3 mg/dL (8.4-11.0); CHLORIDE 100 mmol/L (98-107); CREATININE 2.12 mg/dL (0.55-1.30); GLUCOSE 75 mg/dL (70-99); PHOSPHORUS 4.4 mg/dL (2.7-4.5); POTASSIUM 3.3 mmol/L (3.5-5.1); SODIUM SERUM 135 mmol/L (136-145); TOTAL BILIRUBIN 0.3 mg/dL (0.0-1.0); UREA NITROGEN, BLOOD 17 mg/dL (8-21)
--- NOTE | 2020-11-25 08:00 | NUR ---
NURSE REPORT REPORT OBTAINED FROM NIGHT NURSE CORNELIUS AT 0730, WITH REPORT TO CHARGE NURSE RAYMUNDO. RECEIVED PATIENT ASLEEP AT BEGINNING OF PATCHER BOWLING BALL. NO SXS OF PAIN OR DISCOMFORT. VSS. AFEB. O2 AT 3 L/MIN PER NASAL CANNULA. BG BEFORE BREAKFAST 78. NO INSULIN NEEDED. PATIENT FEED HERSELF.
[2020-11-25] MEDS: MULTIVITS,CA,MINERALS/IRON/FA 1 TABLET PO SCH (09:00)
[2020-11-25] MEDS: CHOLECALCIFEROL (VITAMIN D3) 5,000 UNIT TABLET PO SCH (09:00)
[2020-11-25] MEDS: MUPIROCIN 2% TOPICAL OINTMENT 22 GM NS SCH ×2 (09:00→20:45)
[2020-11-25 09:08] LABS: INR 1.2 (0.8-1.2); PROTHROMBIN TIME 12.1 SECS (9.5-12.5)
[2020-11-25] MEDS: PREGABALIN 25 MG CAPSULE (LYRICA) PO SCH (10:37)
[2020-11-25] MEDS: ASCORBIC ACID 500 MG TABLET PO SCH (10:38)
[2020-11-25] MEDS: FERROUS SULFATE 325 MG TABLET.DR PO SCH ×2 (10:38→20:44)
[2020-11-25] MEDS: METOCLOPRAMIDE HCL 10 MG TABLET PO SCH ×2 (10:38→20:44)
[2020-11-25] MEDS: FAMOTIDINE 20 MG TABLET PO SCH (10:38)
[2020-11-25] MEDS: ATORVASTATIN 10 MG TABLET PO SCH (10:39)
[2020-11-25] MEDS: CARVEDILOL 12.5 MG TABLET (COREG) PO SCH ×2 (10:39→21:00)
[2020-11-25 11:48] LABS: ERYTHROCYTE SEDIMENTATION RATE 23 MM/HR (0-20)
--- NOTE | 2020-11-25 12:30 | NUR ---
NURSE CARE BG BEFORE LUNCH- 104. NO INSULIN NEEDED. VSS. AFEB. NO C/O PAIN OR DISCOMFORT.
[2020-11-25 13:14] VITALS: BP_SYST 128
--- NOTE | 2020-11-25 15:21 | NUR ---
DISCHARGE PLANNING Discussed dc planning with pt at bedside. States lives at [facility] and wants to go back upon discharge. Goes to [facility], ph [phone], M/T//S. States ok to call sister Neyda. Called & spoke with sister Neyda Manisha, ph [phone], verified pt [facility] at [facility] & also wants pt to go back upon discharge. States pt non-ambulatory, not able to assist with transfers, use jenna lift. States has been to [facility] this month that supposed to go back to T/T/S in November. Called & spoke with Benjamin at [facility], possible dc over the weekend, faxed pt info, ph [phone] fax [phone].
[2020-11-25 16:00] VITALS: BP_SYST 133
--- NOTE | 2020-11-25 18:00 | NUR ---
NURSE NOTES BG BEFORE DINNER 98. VSS. AFEB. NO C/O PAIN OR DISCOMFORT.
[2020-11-25] MEDS: WARFARIN SODIUM 4 MG TABLET PO SCH (18:26)
--- NOTE | 2020-11-25 19:30 | NUR ---
NURSE REPORT AND ENDORSEMENT REPORT GIVEN TO NIGHT NURSE BONNY TO ASSUME CARE OF PATIENT. UPDATES GIVEN SINCE SHE HAD THE PATIENT LAST NIGHT. BG BEFORE DINNER 98. NO INSULIN GIVEN. PATIENT FEEDS HERSELF. MRSA +, STILL CONTACT.
--- NOTE | 2020-11-25 19:45 | NUR ---
INITIAL NOTE AT INITIAL ASSESSMENT, PATIENT IS RESTING IN BED, STABLE, NO SIGNS OF RESPIRATORY DISTRESS. PLAN OF CARE IS COMMUNICATED TO THE PATIENT. PATIENT IS UNABLE TO CORRECTLY DEMONSTRATE BACK PROPER USAGE OF CALL LIGHT DUE TO COGNITIVE IMPAIRMENT, FREQUENT ROUNDING WILL BE COMPLETED FOR PATIENT SAFETY. BED IS LOCKED, ALARMED, AND AT THE LOWEST LEVEL. FALL, SAFETY, RESPIRATORY, ISOLATION, AND ASPIRATION PRECAUTIONS HAVE BEEN TAKEN THROUGHOUT THE SHIFT. WILL CONTINUE TO MONITOR UNTIL SHIFT REPORT IS GIVEN AT BEDSIDE TO AM NURSE.
[2020-11-25 19:50] VITALS: BP_SYST 122
[2020-11-25] MEDS: AZITHROMYCIN 500 MG in NS 250 ML IV SCH (20:43)
[2020-11-25] MEDS: cefTRIAXone 1 GM in D5W 50 ML IV SCH (20:44)
[2020-11-25] MEDS: INSULIN GLARGINE 100 UNITS/ML 10 ML VIAL SUBCUT SCH (20:52)
--- NOTE | 2020-11-25 21:10 | NUR ---
HYGIENE CARE HYGIENE CARE PROVIDED AT THIS TIME, FRESH LINENS PROVIDED. PATIENT IS ALSO REPOSITIONED FOR COMFORT. BED IS LOCKED, ALARMED, AND AT THE LOWEST LEVEL.
[2020-11-25] MEDS ORDERED: MAG-AL HYDROX/SIMETH 30 ML UDC PO PRN (22:45)
[2020-11-25] MEDS: LORazepam 2 MG/ML VIAL IVP PRN (22:54)
[2020-11-26] VITALS: BP_SYST 133
[2020-11-26] MEDS: HYDROcodone/ACETAMIN 5-325 MG TAB (NORCO/ VICODIN) PO PRN ×3 (00:44→19:08)
--- NOTE | 2020-11-26 05:10 | NUR ---
BOWEL MOVEMENT/ HYGIENE CARE PATIENT HAD BOWEL MOVEMENT, HYGIENE CARE PROVIDED AT THIS TIME, FRESH LINENS PROVIDED. PATIENT IS ALSO REPOSITIONED FOR COMFORT. BED IS LOCKED, ALARMED, AND AT THE LOWEST LEVEL.
[2020-11-26] MEDS: NORMAL SALINE 5 ML DISP.SYRIN IVF SCH ×2 (05:49→14:00)
--- NOTE | 2020-11-26 06:41 | NUR ---
CLOSING NOTE PATIENT SLEPT WELL DURING THE SHIFT, NO SIGNS OF RESPIRATORY DISTRESS. AT THIS TIME, SHE IS RESTING IN BED, STABLE, NO SIGNS OF RESPIRATORY DISTRESS. CALL LIGHT PLACED WITHIN REACH. BED IS LOCKED, ALARMED, AND AT THE LOWEST LEVEL. FALL, SAFETY, RESPIRATORY, ISOLATION, AND ASPIRATION PRECAUTIONS HAVE BEEN TAKEN THROUGHOUT THE SHIFT. WILL CONTINUE TO MONITOR UNTIL SHIFT REPORT IS GIVEN AT BEDSIDE TO AM SHIFT.
[2020-11-26 07:00] VITALS: BP_SYST 137
[2020-11-26 07:09] LABS: INR 1.3 (0.8-1.2); PROTHROMBIN TIME 13.4 SECS (9.5-12.5)
[2020-11-26] MEDS: CHOLECALCIFEROL (VITAMIN D3) 5,000 UNIT TABLET PO SCH (09:00)
[2020-11-26] MEDS: MULTIVITS,CA,MINERALS/IRON/FA 1 TABLET PO SCH (09:00)
[2020-11-26] MEDS: FERROUS SULFATE 325 MG TABLET.DR PO SCH ×2 (09:33→22:32)
[2020-11-26] MEDS: CARVEDILOL 12.5 MG TABLET (COREG) PO SCH ×2 (09:35→22:34)
[2020-11-26] MEDS: METOCLOPRAMIDE HCL 10 MG TABLET PO SCH ×2 (09:36→22:33)
[2020-11-26] MEDS: ATORVASTATIN 10 MG TABLET PO SCH (09:36)
[2020-11-26] MEDS: ASCORBIC ACID 500 MG TABLET PO SCH (09:36)
[2020-11-26] MEDS: PREGABALIN 25 MG CAPSULE (LYRICA) PO SCH (09:36)
[2020-11-26] MEDS: FAMOTIDINE 20 MG TABLET PO SCH (09:36)
[2020-11-26 12:00] VITALS: BP_SYST 133
[2020-11-26 16:26] VITALS: BP_SYST 135
[2020-11-26] MEDS ORDERED: HEPARIN SODIUM,PORCINE 5,000 UNITS/ML VIAL MC ONE ×2 (17:15)
[2020-11-26] MEDS ORDERED: WARFARIN SODIUM 5 MG TABLET PO SCH (18:00)
[2020-11-26 19:00] VITALS: BP_SYST 128
[2020-11-26] MEDS: MUPIROCIN 2% TOPICAL OINTMENT 22 GM NS SCH ×2 (21:00→23:58)
[2020-11-26] MEDS: cefTRIAXone 1 GM in D5W 50 ML IV SCH (22:32)
[2020-11-26] MEDS: AZITHROMYCIN 500 MG in NS 250 ML IV SCH (23:13)
[2020-11-27] VITALS (7 sets, daily range): BP systolic 123–129
[2020-11-27] MEDS: NORMAL SALINE 5 ML DISP.SYRIN IVF SCH ×4 (00:01→23:23)
[2020-11-27] MEDS: INSULIN GLARGINE 100 UNITS/ML 10 ML VIAL SUBCUT SCH ×2 (00:49→23:31)
--- NOTE | 2020-11-27 05:48 | NUR ---
PT'S SALINE LOCK INFILTRATED . PTREFUSED RESTART.
[2020-11-27 08:03] LABS: INR 1.4 (0.8-1.2); PROTHROMBIN TIME 14.4 SECS (9.5-12.5)
[2020-11-27 08:38] LABS: BASOPHILS % (AUTO) 1.2 % (0.0-2.0); EOSINOPHILS # (AUTO) 0.2 K/uL (0.0-0.4); EOSINOPHILS % (AUTO) 4.4 % (0.0-4.0); HEMATOCRIT 29.4 % (36-48); HEMOGLOBIN 9.7 g/dL (12.0-16.0); LYMPHOCYTES # (AUTO) 0.4 K/uL (1.0-5.5); LYMPHOCYTES % (AUTO) 11.5 % (20.5-51.5); MEAN CORPUSCULAR HEMOGLOBIN 33 pg (27-31); MEAN CORPUSCULAR HGB CONC 33 % (32-36); MEAN CORPUSCULAR VOLUME 100 fL (79.0-98.0); MONOCYTES # (AUTO) 0.4 K/uL (0.0-1.0); MONOCYTES % (AUTO) 10.5 % (1.7-9.3); NEUTROPHILS # (AUTO) 2.8 K/uL (1.8-7.7); NEUTROPHILS % (AUTO) 72.4 % (40.0-70.0); PLATELET COUNT (AUTO) 76 K/uL (130-430); RED BLOOD CELL COUNT(AUTO) 2.93 MIL/uL (4.2-6.2); WHITE BLOOD COUNT (AUTO) 3.9 K/uL (4.8-10.8)
[2020-11-27 08:54] LABS: ANION GAP 8 (5-15); CHLORIDE 101 mmol/L (98-107); CREATININE 2.92 mg/dL (0.55-1.30); GLUCOSE 115 mg/dL (70-99); PHOSPHORUS 4.3 mg/dL (2.7-4.5); POTASSIUM 3.8 mmol/L (3.5-5.1); SODIUM SERUM 138 mmol/L (136-145); UREA NITROGEN, BLOOD 24 mg/dL (8-21)
[2020-11-27] MEDS: MULTIVITS,CA,MINERALS/IRON/FA 1 TABLET PO SCH (09:03)
[2020-11-27] MEDS: FERROUS SULFATE 325 MG TABLET.DR PO SCH ×2 (09:04→23:22)
[2020-11-27] MEDS: METOCLOPRAMIDE HCL 10 MG TABLET PO SCH ×2 (09:04→23:22)
[2020-11-27] MEDS: PREGABALIN 25 MG CAPSULE (LYRICA) PO SCH (09:04)
[2020-11-27] MEDS: FAMOTIDINE 20 MG TABLET PO SCH (09:04)
[2020-11-27] MEDS: ATORVASTATIN 10 MG TABLET PO SCH (09:04)
[2020-11-27] MEDS: CARVEDILOL 12.5 MG TABLET (COREG) PO SCH ×2 (09:05→23:22)
[2020-11-27] MEDS: ASCORBIC ACID 500 MG TABLET PO SCH (09:06)
[2020-11-27] MEDS: HYDROcodone/ACETAMIN 5-325 MG TAB (NORCO/ VICODIN) PO PRN (09:12)
[2020-11-27] MEDS ORDERED: LEVO250T58 PO (11:05)
--- NOTE | 2020-11-27 11:06 | NUR ---
Patient's creatinine is 2.92, trending up. Dr. Erica Crenshaw was informed at patient's room at 1050 when MD went for round.
--- NOTE | 2020-11-27 11:09 | NUR ---
patient's IV infiltrated and patient is a hard stick, not able to get a iv line. Dr. Maldonado was informed in patient's room and he said it is okay not to have an IV line since he is going to discharge the patient and patient does not have any antibiotics.
[2020-11-27] MEDS: CHOLECALCIFEROL (VITAMIN D3) 5,000 UNIT TABLET PO SCH (13:28)
[2020-11-27] MEDS ORDERED: WARFARIN SODIUM 7.5 MG TABLET PO SCH (18:00)
--- NOTE | 2020-11-27 19:34 | NUR ---
Dietitian Recommendations * Recommend cardiac, CCHO standard carb-60 gm diet w/ Nepro BID, Louis BID (supplements provide an additional 1030 kcal/day, 43 gm protein/day) * Encourage increase PO intakes LP, RD Please refer to Nutrition Assessment for details. Addendum: 11/27/20 at [address] Amended: Links added.
[2020-11-27] MEDS: AZITHROMYCIN 500 MG in NS 250 ML IV SCH (23:21)
[2020-11-27] MEDS: MUPIROCIN 2% TOPICAL OINTMENT 22 GM NS SCH (23:21)
[2020-11-27] MEDS: cefTRIAXone 1 GM in D5W 50 ML IV SCH (23:32)
[2020-11-28 00:36] VITALS: BP_SYST 141
[2020-11-28] MEDS: TEMAZEPAM 15 MG CAPSULE PO PRN (00:56)
[2020-11-28] MEDS: HYDROcodone/ACETAMIN 5-325 MG TAB (NORCO/ VICODIN) PO PRN (00:58)
--- NOTE | 2020-11-28 01:29 | NUR ---
CALLED [facility]NMAR[facility] SPOKE WITH ROB AND SHE INFORMED ME THAT THEY HAVE A ISO BED AND THEY CAN TAKE PT AT 1100 ROOM 302A CALLED [facility] AND SET UP [facility] 1100
[2020-11-28] MEDS: NORMAL SALINE 5 ML DISP.SYRIN IVF SCH (06:05)
[2020-11-28 07:25] LABS: BASOPHILS # (AUTO) 0.1 K/uL (0.0-0.2); BASOPHILS % (AUTO) 1.1 % (0.0-2.0); EOSINOPHILS # (AUTO) 0.3 K/uL (0.0-0.4); EOSINOPHILS % (AUTO) 5.2 % (0.0-4.0); HEMATOCRIT 29.7 % (36-48); HEMOGLOBIN 9.9 g/dL (12.0-16.0); LYMPHOCYTES # (AUTO) 0.6 K/uL (1.0-5.5); LYMPHOCYTES % (AUTO) 12.1 % (20.5-51.5); MEAN CORPUSCULAR HEMOGLOBIN 33 pg (27-31); MEAN CORPUSCULAR HGB CONC 33 % (32-36); MEAN CORPUSCULAR VOLUME 100 fL (79.0-98.0); MONOCYTES # (AUTO) 0.4 K/uL (0.0-1.0); NEUTROPHILS # (AUTO) 3.5 K/uL (1.8-7.7); NEUTROPHILS % (AUTO) 73.6 % (40.0-70.0); PLATELET COUNT (AUTO) 88 K/uL (130-430); RED BLOOD CELL COUNT(AUTO) 2.98 MIL/uL (4.2-6.2); RED CELL DISTRIBUTION WIDTH 14.8 % (9.0-15.0); WHITE BLOOD COUNT (AUTO) 4.8 K/uL (4.8-10.8)
--- NOTE | 2020-11-28 07:30 | NUR ---
OPENING NOTES: RECEIVED REPORT FROM CHIEF OF POLICE NURSE. PATIENT IS AWAKE LAYING DOWN IN BED. TOLERATED OXYGEN ON ROOM AIR WITH NO DISTRESS NOTED. IV LINE PATENT AND INTACT WITH NO INFILTRATION NOTED. LEFT CHEST UPPER PERMA CATH PATENT AND INTACT. PATIENT STABLE AT THIS TIME. SAFETY, FALL, AND ASPIRATION PRECAUTIONS ARE IN PLACE. BED LOCKED IN LOWEST POSITION AND CALL LIGHT IN REACH. WILL CONTINUE TO MONITOR PATIENT FOR ANY CHANGES.
[2020-11-28 07:48] LABS: INR 1.5 (0.8-1.2); PROTHROMBIN TIME 15.4 SECS (9.5-12.5)
[2020-11-28 08:00] VITALS: BP_SYST 155
[2020-11-28 08:17] LABS: ALANINE AMINOTRANSFERASE 10 U/L (12-78); ANION GAP 7 (5-15); C-REACTIVE PROTEIN QUANT 2.6 mg/dL (0-0.5); CALCIUM 7.8 mg/dL (8.4-11.0); CHLORIDE 95 mmol/L (98-107); CREATININE 4.26 mg/dL (0.55-1.30); GLUCOSE 98 mg/dL (70-99); PHOSPHORUS 4.9 mg/dL (2.7-4.5); POTASSIUM 4.3 mmol/L (3.5-5.1); SODIUM SERUM 130 mmol/L (136-145); TOTAL BILIRUBIN 0.4 mg/dL (0.0-1.0); UREA NITROGEN, BLOOD 38 mg/dL (8-21)
[2020-11-28] MEDS: MUPIROCIN 2% TOPICAL OINTMENT 22 GM NS SCH (08:33)
[2020-11-28] MEDS: FERROUS SULFATE 325 MG TABLET.DR PO SCH (08:34)
[2020-11-28] MEDS: MULTIVITS,CA,MINERALS/IRON/FA 1 TABLET PO SCH (08:34)
[2020-11-28] MEDS: FAMOTIDINE 20 MG TABLET PO SCH (08:34)
[2020-11-28] MEDS: PREGABALIN 25 MG CAPSULE (LYRICA) PO SCH (08:34)
[2020-11-28] MEDS: ASCORBIC ACID 500 MG TABLET PO SCH (08:35)
[2020-11-28] MEDS: ATORVASTATIN 10 MG TABLET PO SCH (08:35)
[2020-11-28] MEDS: CARVEDILOL 12.5 MG TABLET (COREG) PO SCH (08:35)
[2020-11-28] MEDS: CHOLECALCIFEROL (VITAMIN D3) 5,000 UNIT TABLET PO SCH (08:35)
[2020-11-28] MEDS: METOCLOPRAMIDE HCL 10 MG TABLET PO SCH (08:36)
[2020-11-28 10:06] VITALS: BP_SYST 155
--- NOTE | 2020-11-28 10:16 | NUR ---
CALLED CRISTY (SISTER) REGARDING PATIENT TRANSFER TO [facility]. CALLED [facility] AND SPOKE TO FAUSTINO AND GAVE REPORT. PATIENT WILL BE IN ROOM 302A. Addendum: 11/28/20 at 1037 by Gilberto Murray RN PATIENT GOES TO [facility] AFTER DISCHARGE.
[2020-11-28 10:57] LABS: ERYTHROCYTE SEDIMENTATION RATE 36 MM/HR (0-20)
--- NOTE | 2020-11-28 11:00 | NUR ---
D/C Patient Patient given medication reconciliation form and D/C instructions. Exit Care provided. Patient verbalized understanding. MD discussed with patient the results and treatment provided. Patient is discharge to [facility]. Patient in stable condition, ID band removed. IV catheter removed, intact and dressing applied, no active bleeding. Patient educated on pain management. All belongings sent with patient.
[2020-11-28 11:24] LABS: ASPARTATE AMINOTRANSFERASE 16 U/L (10-37)
[2020-11-29] MEDS ORDERED: NON-FORMULARY MEDICATION (Ergocalciferol (Vitamin D2) (Vitamin D2) 50,000 UNIT) PO SCH (09:00)
== END 2020-11-28 11:00 | DRG 193 ==
LOC: SED 14:21 → STU 17:39 → SMU 11-27 11:35
PROVIDERS: ADMIT Preventive Medicine Preventive Medicine/Occupational Environmental Medicine; ATTEND Preventive Medicine Preventive Medicine/Occupational Environmental Medicine
PROC: 5A1D70Z Performance of Urinary Filtration, Intermittent, Less than 6 Hours Per Day (ICD-10-PCS; principal; 2020-11-23)
PROC: 5A1D70Z Performance of Urinary Filtration, Intermittent, Less than 6 Hours Per Day (ICD-10-PCS; 2020-11-24)
PROC: 5A1D70Z Performance of Urinary Filtration, Intermittent, Less than 6 Hours Per Day (ICD-10-PCS; 2020-11-26)
DX: J18.9 Pneumonia, unspecified organism (principal); J96.01 Acute respiratory failure with hypoxia; N18.6 End stage renal disease; J81.1 Chronic pulmonary edema; N17.9 Acute kidney failure, unspecified; J44.0 Chronic obstructive pulmonary disease with (acute) lower respiratory infection; I13.2 Hypertensive heart and chronic kidney disease with heart failure and with stage 5 chronic kidney disease, or end stage renal disease; G47.00 Insomnia, unspecified; E11.65 Type 2 diabetes mellitus with hyperglycemia; E11.22 Type 2 diabetes mellitus with diabetic chronic kidney disease; E11.40 Type 2 diabetes mellitus with diabetic neuropathy, unspecified; E83.39 Other disorders of phosphorus metabolism; E83.42 Hypomagnesemia; E87.70 Fluid overload, unspecified; E88.09 Other disorders of plasma-protein metabolism, not elsewhere classified; R07.89 Other chest pain; D63.1 Anemia in chronic kidney disease; R53.81 Other malaise; I50.9 Heart failure, unspecified; M16.0 Bilateral primary osteoarthritis of hip; Z22.322 Carrier or suspected carrier of Methicillin resistant Staphylococcus aureus; Z79.01 Long term (current) use of anticoagulants; Z87.891 Personal history of nicotine dependence; Z88.7 Allergy status to serum and vaccine; Z99.2 Dependence on renal dialysis; Z88.8 Allergy status to other drugs, medicaments and biological substances; Z91.018 Allergy to other foods; Z79.899 Other long term (current) drug therapy
CPT/HCPCS: 36415; 36600; 71045; 72170-TC; 80048; 80053; 82803-TC; 82962; 83605; 83735; 83880; 84100; 84484; 85025; 85610-TC; 85651-TC; 85730-TC; 86140; 87040-TC; 87081; 90935; 90937; 93005; 93970; 94760; 96365; 96367; 96375; 99285; G0378; J0456; J0696; J1644; J1815; J2060; J7050; J7060; J8597; Q0163